=== PATIENT | female | born 2000 | race Caucasian/White ===

== ENCOUNTER 2024-04-15 17:43 | Outpatient (CLI) | payer OTHER ==
[~2024-04-15] VITALS: Ht 152.4 cm; Wt 59.7 kg
[2024-04-15] MEDS ORDERED: ACET-907 PO (18:02)
[2024-04-15] MEDS ORDERED: ASPI81CH33 PO (18:02)
[2024-04-15] MEDS ORDERED: SERT-141 PO (18:02)
[2024-04-15] MEDS ORDERED: PRENTAB9 PO (18:02)
[2024-04-15 18:06] VITALS: BP 124/77
[2024-04-15] MEDS: ACETAMINOPHEN 500 MG TAB PO ONE (18:50)
[2024-04-15] MEDS: METOCLOPRAMIDE 10MG TAB PO ONE (18:50)
== END 2024-04-15 19:54 | disposition home or self-care (01) ==
LOC: M LDO 17:43
PROVIDERS: ATTEND Advanced Practice Midwife
DX: O26.892 Other specified pregnancy related conditions, second trimester (principal); R51.9 Headache, unspecified; Z87.59 Personal history of other complications of pregnancy, childbirth and the puerperium; Z3A.24 24 weeks gestation of pregnancy; Z88.0 Allergy status to penicillin; Z88.2 Allergy status to sulfonamides; Z88.1 Allergy status to other antibiotic agents; Z88.8 Allergy status to other drugs, medicaments and biological substances; Z79.82 Long term (current) use of aspirin; Z79.899 Other long term (current) drug therapy
CPT/HCPCS: 59025; G0463

== ENCOUNTER 2024-06-02 10:35 | Outpatient (CLI) | payer OTHER ==
[~2024-06-02] VITALS: Ht 152.4 cm; Wt 64.9 kg
[~2024-06-02 10:35] MED LIST: ACET-907 PO; ASPI81CH33 PO; PRENTAB9 PO; SERT-141 PO
[2024-06-02] MEDS ORDERED: MAG100TA PO (10:52)
[2024-06-02 10:53] VITALS: BP 113/74
[2024-06-02 12:26] LABS: HEMATOCRIT 35.3 % (36.0-47.0); HEMOGLOBIN 12.4 g/dl (12.0-15.5); MEAN CORPUSCULAR HEMOGLOBIN 32.6 pg (27.0-33.0); MEAN CORPUSCULAR HGB CONC 35.1 g/dl (32.0-36.5); MEAN CORPUSCULAR VOLUME 92.9 fl (80.0-96.0); PLATELET COUNT, AUTOMATED 214 10^3/uL (150-450)
[2024-06-02 12:44] LABS: INR 0.96; PARTIAL THROMBOPLASTIN TIME 23.5 SECONDS (24.8-34.2); PROTHROMBIN TIME 13.1 SECONDS (12.5-14.5)
[2024-06-02 12:57] VITALS: BP 95/56
== END 2024-06-02 14:45 | disposition home or self-care (01) ==
LOC: M LDO 10:35
PROVIDERS: ATTEND Advanced Practice Midwife
DX: O26.893 Other specified pregnancy related conditions, third trimester (principal); M54.50 Low back pain, unspecified; Z87.51 Personal history of pre-term labor; Z87.59 Personal history of other complications of pregnancy, childbirth and the puerperium; Z3A.31 31 weeks gestation of pregnancy; W00.0XXA Fall on same level due to ice and snow, initial encounter; Y92.9 Unspecified place or not applicable; Y93.9 Activity, unspecified; Y99.9 Unspecified external cause status
CPT/HCPCS: 36415; 59025; 85027; 85384; 85460; 85610; 85730; G0463

== ENCOUNTER 2024-07-04 16:19 | Outpatient (CLI) | payer OTHER ==
[~2024-07-04] VITALS: Ht 152.4 cm; Wt 67.4 kg
[~2024-07-04 16:19] MED LIST changes: +MAG100TA PO
[2024-07-04 16:36] VITALS: BP 123/75
[2024-07-04] MEDS ORDERED: HOME MED LIST COMPLETE! XX SCH (16:45)
== END 2024-07-04 18:12 | disposition home or self-care (01) ==
LOC: M LDO 16:19
PROVIDERS: ATTEND Specialist
DX: O26.893 Other specified pregnancy related conditions, third trimester (principal); M54.50 Low back pain, unspecified; R10.31 Right lower quadrant pain; Z3A.35 35 weeks gestation of pregnancy; W07.XXXA Fall from chair, initial encounter; Y92.9 Unspecified place or not applicable; Y93.9 Activity, unspecified; Y99.9 Unspecified external cause status
CPT/HCPCS: 59025; G0463

== ENCOUNTER 2024-07-26 10:38 | Inpatient (IN) | payer OTHER ==
[~2024-07-26] VITALS: Ht 152.4 cm; Wt 70.0 kg
[2024-07-26] VITALS (8 sets, daily range): BP systolic 115–123; BP diastolic 64–82; O2SAT 98
[2024-07-26] MEDS ORDERED: OXYTOCIN 30UNITS IN 0.9% NaCl 500ML IV BAG As Ordered ONE (10:49)
[2024-07-26 11:02] LABS: CORD GAS HCO3 A 24.6 MMOL/L; CORD GAS HCO3 V 22.9 MMOL/L; CORD GAS O2 SAT A 68.2 %; CORD GAS O2 SAT V 75.8 %; CORD GAS PCO2 A 48.6 mmHg; CORD GAS PCO2 V 39.8 mmHg; CORD GAS PH A 7.322 UNITS; CORD GAS PH V 7.378 UNITS; CORD GAS PO2 A 29.7 mmHg; CORD GAS PO2 V 30.4 mmHg; CORD GAS SBC V 22.3 MMOL/L; CORD GAS TCO2 A 26.1 MMOL/L; CORD GAS TCO2 V 24.1 MMOL/L
[2024-07-26 11:07] LABS: HEMATOCRIT 40.7 % (36.0-47.0); HEMOGLOBIN 14.1 g/dl (12.0-15.5); MEAN CORPUSCULAR HGB CONC 34.6 g/dl (32.0-36.5); MEAN CORPUSCULAR VOLUME 89.5 fl (80.0-96.0); PLATELET COUNT, AUTOMATED 265 10^3/uL (150-450); RED BLOOD COUNT 4.55 10^6/uL (4.00-5.40); WHITE BLOOD COUNT 11.3 10^3/uL (4.0-10.0)
[2024-07-26] MEDS ORDERED: METHYLERGONOVINE MALEATE 0.2 MG TAB PO PRN (11:30)
[2024-07-26] MEDS ORDERED: IBUPROFEN 600MG TAB PO PRN (11:30)
[2024-07-26] MEDS ORDERED: ACETAMINOPHEN 325 MG TAB PO PRN (11:30)
[2024-07-26] MEDS ORDERED: DOCUSATE SODIUM 100MG CAPSULE PO PRN (11:30)
[2024-07-26] MEDS ORDERED: RHOGAM 300MCG (1500IU) INJ IM SCH (11:30)
[2024-07-26] MEDS ORDERED: HOME MED LIST COMPLETE! XX SCH (11:35)
[2024-07-26] MEDS: OXYTOCIN DRIP 30 UNITS in IV 1 EA IV SCH (11:55)
[2024-07-26] MEDS: IBUPROFEN 800 MG TAB PO PRN (12:24)
[2024-07-26 13:20] LABS: HIV 1&2 SCREEN NEGATIVE (NEGATIVE)
[2024-07-26 13:29] LABS: HEPATITIS C VIRUS ABY INDEX 0.02 INDEX (<0.8)
[2024-07-26] MEDS: DIBUCAINE 1% OINTMENT 30GM TOP PRN (15:56)
[2024-07-26] MEDS: ACETAMINOPHEN 500 MG TAB PO PRN (15:57)
[2024-07-27 06:15] VITALS: BP 110/62; O2SAT 98
[2024-07-27] MEDS: PRENATAL VITAMINS CHEWABLE TABLET PO SCH (07:44)
[2024-07-27] MEDS: MEASLES,MUMPS,RUBELLA VACCINE INJ (MMR-II) SC.IMMUN ONE (09:33)
[2024-07-27] MEDS ORDERED: ACET-683 PO (11:42)
[2024-07-27] MEDS ORDERED: IBUP80TA PO (11:42)
[2024-07-27 18:00] VITALS: BP 121/73; O2SAT 98
[2024-07-28 05:50] VITALS: BP 113/68; O2SAT 98
[2024-07-28] MEDS ORDERED: COLA100C5 PO (08:33)
[2024-07-28] MEDS ORDERED: IBUP-1022 PO (08:33)
== END 2024-07-28 12:35 | disposition home or self-care (01) | DRG 807 ==
LOC: M LDO 10:38 → M LDI 10:43 → M OBS 15:38
PROVIDERS: ADMIT Obstetrics & Gynecology; ATTEND Obstetrics & Gynecology
PROC: 10E0XZZ Delivery of Products of Conception, External Approach (ICD-10-PCS; principal; 2024-07-26)
DX: O80 Encounter for full-term uncomplicated delivery (principal); Z37.0 Single live birth; Z3A.38 38 weeks gestation of pregnancy; Z88.0 Allergy status to penicillin; Z88.1 Allergy status to other antibiotic agents; Z88.2 Allergy status to sulfonamides; Z79.82 Long term (current) use of aspirin; Z79.899 Other long term (current) drug therapy